=== PATIENT | male | born 1990 | race Two or more races ===

== ENCOUNTER 2018-11-08 23:28 | Emergency (ER) | payer OTHER ==
[2018-11-09] MEDS ORDERED: PENICILLIN V POTASSIUM 500 MG TABLET PO ONE (01:52)
--- NOTE | 2018-11-09 01:53 | ER Document Report ---
HPI - HPI Time Seen by Provider: 11/09/18 01:52 Pain Level: 3 Notes: Patient is an otherwise healthy 28-year-old male presenting with chief complaint of dental infection. Patient reports pain and swelling to his left upper jawline again at tooth #15 and 16. He denies any fever but reports chills. Patient requesting antibiotics. Past Medical History - General Information source: Patient - Social History Smoking Status: Never Smoker Frequency of alcohol use: None Drug Abuse: None Family History: Reviewed & Not Pertinent - Medical History Medical History: Negative Surgical Hx: Negative - Immunizations Immunizations up to date: Yes Vertical Provider Document - CONSTITUTIONAL Notes: PHYSICAL EXAMINATION: GENERAL: Well-appearing, well-nourished and in no acute distress. HEAD: Atraumatic, normocephalic. EYES: Pupils equal round extraocular movements intact, conjunctiva are normal. ENT: Nares patent, erythema noted around tooth #15 and 16, no drainable abscess identified. Mild swelling present. NECK: Normal range of motion LUNGS: No respiratory distress Musculoskeletal: Normal range of motion NEUROLOGICAL: Normal speech, normal gait. PSYCH: Normal mood, normal affect. SKIN: Warm, Dry, normal turgor, no rashes or lesions noted. - INFECTION CONTROL TRAVEL OUTSIDE OF THE [place] IN LAST 30 DAYS: No Course - Re-evaluation Re-evalutation: Patient will be started on penicillin VK. No drainable abscess identified. Patient encouraged to follow-up with dentist. Return precautions were discussed. - Vital Signs Vital signs: Temp Pulse Resp BP Pulse Ox 98.8 F 86 16 133/78 H 97 11/08/18 23:56 11/08/18 23:56 11/08/18 23:56 11/08/18 23:56 11/08/18 23:56 Discharge - Discharge Clinical Impression: Dental infection Condition: Stable Disposition: HOME, SELF-CARE Additional Instructions: You have been seen for dental pain. It is very important that you follow-up with a dentist for definitive care. Please return if you develop fever greater than 101, swelling in your face, vomiting, difficulty breathing or swallowing, or any other symptoms that are concerning to you. For pain you should take ibuprofen 800 mg every 8 hours as needed. Prescriptions: Penicillin V Potassium [Penicillin Vk 500 mg Tablet] 500 mg PO BID #20 tablet
[2018-11-09 02:15] VITALS: BP 137/72
== END 2018-11-09 02:13 | disposition home or self-care (01) ==
LOC: ER 23:28
DX: K04.7 Periapical abscess without sinus (principal)
CPT/HCPCS: 99282